=== PATIENT | male | born 1990 | race Caucasian/White ===

== ENCOUNTER 2016-07-29 19:24 | Emergency (ER) | payer BC, OTHER ==
[~2016-07-29] VITALS: Ht 182.9 cm; Wt 81.0 kg
[2016-07-29 19:55] VITALS: BP 156/81; PULSE 83; TEMP 37; O2SAT 100; Ht 182.9 cm; Wt 81.0 kg
--- NOTE | 2016-07-29 21:04 | DIAGNOSTIC IMAGING REPORT ---
LEFT KNEE 3 VIEWS CLINICAL HISTORY: Left knee pain. Trauma. COMPARISON: None. DISCUSSION: 3 views reveal postsurgical changes of an ACL repair. No acute fractures are visualized. There is a loose body versus spur projected over the medial aspect of the lateral tibial plateau. IMPRESSION: Postsurgical change. No acute fractures or dislocations identified. Electronically signed by: Piotr Venegas M.D. 07/29/2016 9:03 PM Dictated Date/Time: 07/29/2016 9:00 PM
[2016-07-29] MEDS ORDERED: NAPR-1169 PO (21:45)
[2016-07-29] MEDS ORDERED: HYDR-5688 PO (21:45)
[2016-07-29] MEDS ORDERED: NORCO 5/325MG HOME PACK PO ONE (21:45)
--- NOTE | 2016-07-29 21:46 | EMERGENCY ROOM VISIT NOTE ---
ED Visit Note First contact with patient: 20:05 CHIEF COMPLAINT: knee pain HISTORY OF PRESENT ILLNESS: This 25-year-old male patient presents to the emergency department ambulatory complaining of pain in the left knee. The patient reports that he was getting ready to go on a run tonight when he was stretching and distended his left knee and has had pain since then. 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 Schroeder. He reports that he is having difficulty extending and flexing the knee. He rates his overall discomfort a 3/10. He has not taken any medication for the pain. He is unable to bear any weight on the knee. No ankle, foot or hip pain. REVIEW OF SYSTEMS: A 6 system review of systems was completed with positives and pertinent negatives listed in the HPI. ALLERGIES: No known drug allergies MEDICATIONS: No chronic medications PMH: Left anterior cruciate ligament surgery SOCIAL HISTORY: The patient lives locally with family. PHYSICAL EXAM: Vital Signs: Reviewed Nurse's notes, vital signs stable. GENERAL : This is a 25-year-old male, no acute distress, but appears in pain, well- developed, well-nourished. MENTAL STATUS: Alert, oriented to person place and time, and cooperative. MUSCULOSKELETAL: The left knee is not swollen. There is no ecchymosis. There is no joint effusion present. The patient is tender over the lateral aspect of the knee. There is no joint line tenderness. The patella does not subluxate. Full passive range of motion, but active flexion and extension are decreased secondary to patient discomfort. Strength of the quads and hamstrings is 5/5. Archie's is negative. Edu's and Anterior Drawer tests are negative. There is no laxity with varus and valgus stressing. The foot and toes are warm and well-perfused. Dorsalis pedis pulse 2+. Sensation to pain and light touch is intact. Capillary refill less than 2 seconds. RADIOGRAPHIC FINDINGS: LEFT KNEE 3 VIEWS CLINICAL HISTORY: Left knee pain. Trauma. COMPARISON: None. DISCUSSION: 3 views reveal postsurgical changes of an ACL repair. No acute fractures are visualized. There is a loose body versus spur projected over the medial aspect of the lateral tibial plateau. IMPRESSION: Postsurgical change. No acute fractures or dislocations identified. EMERGENCY DEPARTMENT COURSE: I examined the patient. X-rays of the left knee were reviewed by myself and read by radiology and reveal no acute findings. Given the patient's history, he will be treated conservatively and will need to follow-up with orthopedics as soon as possible. He was given a prescription for Naprosyn and Waddy. He was placed in an Richard wrap and will use his own crutches for 8 with walking. He verbalized understanding of my assessment and treatment plan. The patient was discharged home in good condition. DIAGNOSIS: Left knee pain Current/Historical Medications Scheduled Naproxen (Naprosyn), 500 MG PO DAILY Scheduled PRN Hydrocodone/Acetaminophen 5MG/325MG (Waddy 5MG/325MG), 1-2 TABLET PO Q4H PRN for Pain Allergies Coded Allergies: No Known Allergies (Verified Allergy, Unknown, 08/05/02) Vital Signs Date Time Temp Pulse Resp B/P Pulse Ox O2 Delivery O2 Flow Rate FiO2 07/29/16 19:55 37.0 83 18 156/81 100 Room Air Medications Administered Medications (Trade) Dose Ordered Sig/Isac Route Start Time Stop Time Status Last Admin Dose Admin Acetaminophen/ Hydrocodone Bitart (Waddy 5/325mg Home Pack) 1 homepack UD ONCE PO 07/29/16 21:45 07/29/16 21:46 DC 07/29/16 21:44 1 HOMEPACK Departure Information Impression Primary Impression: Left knee pain Dispostion Home / Self-Care Condition GOOD Prescriptions Naproxen (Naprosyn) 500 Mg Tab 500 MG PO DAILY for 10 Days, #10 TAB Prov: Crystal Reagan PA-C 07/29/16 Hydrocodone/Acetaminophen 5MG/325MG (Waddy 5MG/325MG) Tab 1-2 TABLET PO Q4H Y for Pain, #15 TAB For Initial Treatment Prov: Crystal Reagan PA-C 07/29/16 Referrals No Doctor, Assigned Zeferino Schroeder D.O. Forms HOME CARE DOCUMENTATION FORM, IMPORTANT VISIT INFORMATION Patient Instructions My [facility] Additional Instructions You have been treated in the Emergency Department for Knee Pain. You have been prescribed Waddy to be used for pain control. This is a narcotic medication. You cannot drive or consume alcohol while on this medicine. This medicine should only be used for pain that cannot be controlled with over-the- counter pain medicines. Naprosyn as prescribed. For pain control, you can use the following [id number] medicines (if >12 yo): - Regular strength (325mg/tab) Tylenol (acetaminophen) 2 tabs every 4-6 hours as needed. Do not exceed 12 tablets in a 24 hour period. Avoid taking more than 4 grams (4000 mg) of Tylenol per day. This includes any other sources of acetaminophen you may take on a regular basis. - Regular strength (200 mg/tab) Advil (ibuprofen) 1-2 tabs every 4-6 hours as needed. Do not exceed a dose of 3200 mg per day. If this is a recent injury (<24 hrs), ice can be applied to the area of pain for the first 3 days to help decrease pain and inflammation. Ice massages can be performed by freezing water in a paper cup, peeling back the cup to expose the ice and then massaging over the affected area. You have been provided the number for an Orthopaedic Surgeon. You should call this number as soon as possible to establish a follow-up visit from today's Emergency Department visit. Keep the Richard wrap in place until cleared by Orthopedics. Use the crutches you have been provided to keep ALL weight off of the knee until weight bearing is tolerable. Return to the Emergency Department if your current symptoms worsen despite treatment course outlined above. Problem Qualifiers Primary Impression: Left knee pain Chronicity: acute Qualified Codes: M25.562 - Pain in left knee
== END 2016-07-29 21:48 | disposition home or self-care (01) ==
LOC: C.EDB 19:26 → C.EDD 21:48
DX: M25.562 Pain in left knee (principal); X50.1XXA Overexertion from prolonged static or awkward postures, initial encounter

== ENCOUNTER → 2017-01-14 | Outpatient (CLI) | payer OTHER ==
[~2017-01-14] MED LIST: HYDR-5688 PO
[2017-01-14 13:53] LABS: CHOLESTEROL/HDL RATIO 3.1
== END | disposition home or self-care (01) ==
LOC: C.LABBC 10:48
PROVIDERS: ATTEND Physician Assistant Medical
DX: Z00.00 Encounter for general adult medical examination without abnormal findings (principal)